=== PATIENT | female | born 1980 | race Caucasian/White ===

== ENCOUNTER 2023-10-20 10:06 | Outpatient (CLI) | payer OTHER, SELFPAY | END 2023-10-20 10:07 | disposition home or self-care (01) | PROVIDERS: PCP Family Medicine; Visit Provider Family Medicine | DX: Z00.00 Encounter for general adult medical examination without abnormal findings (principal); E03.9 Hypothyroidism, unspecified; F41.8 Other specified anxiety disorders; Z76.89 Persons encountering health services in other specified circumstances | CPT/HCPCS: 80053; 82671; 83001; 83002; 84439; 84443 ==

== ENCOUNTER 2023-11-26 08:11 | Outpatient (CLI) | payer OTHER, SELFPAY | END 2023-11-26 08:12 | disposition home or self-care (01) | LOC: LKVREF 08:20 | PROVIDERS: PCP Family Medicine; Visit Provider Family Medicine | DX: E03.9 Hypothyroidism, unspecified (principal) | CPT/HCPCS: 84443 ==